=== PATIENT | male | born 1990 | race Caucasian/White ===

== ENCOUNTER 2019-11-29 18:02 | Emergency (ER) | payer OTHER ==
[~2019-11-29] VITALS: Ht 162.6 cm; Wt 74.6 kg
[2019-11-29 18:03] VITALS: BP 112/59
[2019-11-29 19:18] LABS: INFLUENZA A AMPLIFICATION NEGATIVE (NEGATIVE); INFLUENZA B AMPLIFICATION POSITIVE (NEGATIVE)
[2019-11-29] MEDS ORDERED: IBUPROFEN 800 MG TAB PO ONE (19:30)
[2019-11-29] MEDS ORDERED: ACETAMINOPHEN 500 MG TAB PO ONE (19:30)
--- NOTE | 2019-11-30 05:32 | REP ---
Clinical: Cough . Comparison: None . Technique: PA and lateral. Findings: The mediastinum and cardiac silhouette are normal. The lung robertson are clear and without acute consolidation, effusion, or pneumothorax. The skeletal structures are intact and normal. Impression: 1. No acute cardiopulmonary process. Electronically Signed by Gurmeet Colbert MD 11/30/2019 05:23 A
== END 2019-11-29 19:43 | disposition home or self-care (01) ==
LOC: M ED 19:34
DX: J10.1 Influenza due to other identified influenza virus with other respiratory manifestations (principal); F17.210 Nicotine dependence, cigarettes, uncomplicated